=== PATIENT | female | born 1970 | race Caucasian/White ===

== ENCOUNTER → 2017-05-17 | Day surgery (SDC) | payer OTHER, BC ==
[~2017-05-17] MED LIST: ASPI1TAB2 PO; FAMO40TA57 PO; IBUP-1027 PO; IV RINGERS,LACTATED 1000ML 1,000 ML IV SCH; LIDOCAINE 2% PF Vial for OR 5 ML VIAL. ONE; PANT40GR PO; PROPOFOL 20 ML IV ONE; ZOLP10TA4 PO
[2017-05-17 10:15] LABS: NEG OBC UR NEG; POS OBC UR POS
[2017-05-17 11:54] VITALS: BP 144/75
== END | disposition home or self-care (01) ==
LOC: SURG 09:49
PROVIDERS: ATTEND Internal Medicine Gastroenterology
DX: K22.2 Esophageal obstruction (principal); K29.50 Unspecified chronic gastritis without bleeding; J45.909 Unspecified asthma, uncomplicated; E66.9 Obesity, unspecified; Z68.42 Body mass index [BMI] 45.0-49.9, adult; Z86.14 Personal history of Methicillin resistant Staphylococcus aureus infection
CPT/HCPCS: 43235; 43450; 81025; J2704; J2001